=== PATIENT | female | born 1970 | race Caucasian/White ===

== ENCOUNTER → 2017-12-20 09:53 | Outpatient (REF) | payer BC, SELFPAY ==
--- NOTE | 2017-12-20 09:30 | PAPFT_PTH ---
PATIENT: Elma Pearce LOC: [facility] U#:[id number] AGE/SX: 54/F ROOM: RE12/20/[address]: RONI Hdez : 1970 BED: DIS: SPEC #: [id number] RECD: 12/20/17 12:45 STATUS: DAVID REEdwin #: [id number] NA: 12/20/17 09:[address]: Bess Angel DEPT: [facility] Cytology RECD BY: Cathy Ryan ENTERED: 12/20/17 12:45 SP TYPE: PAPFT OTHR DR: None Tissues: 1 - CX/ENDOCX FOR PAP SMEARS Procedures: PAP THIN PREP/UVM Screening HPV DNA PROBE Comments: [id number]
== END ==
LOC: LBN 09:53
PROVIDERS: Visit Provider Nurse Practitioner Family
DX: Z12.4 Encounter for screening for malignant neoplasm of cervix (principal); Z11.51 Encounter for screening for human papillomavirus (HPV)
CPT/HCPCS: 88142; 87624

== ENCOUNTER → 2017-12-26 00:28 | Outpatient (CLI) | payer BC, SELFPAY ==
--- NOTE | 2017-12-26 07:33 | DI.REPORT_ITS ---
SYMPTOM/DIAGNOSIS: SCREENING Z12.31 MAMMOGRAM: Mammograms were interpreted according to the usual protocol including computer analysis with CAD system, tomosynthesis and C view imaging. The breasts are heterogeneously dense. No dominant mass or clumped microcalcification is identified in either breast. The current examination is compared with previous examination of 2013 and there has been no gross interval change in appearance in comparison with the previous study. CONCLUSION: No specific evidence of malignancy at this time. Routine screening examinations are suggested at yearly intervals in this age group according to the ACS/ACR guidelines. Category 1, breast density category C. MQSA ASSESSMENT OF FINDINGS: Negative. Category 1. Patient will receive a letter notifying them of these results. Bi-RADS category C. The breasts are heterogeneously dense, which may obscure small masses.
== END ==
PROVIDERS: Visit Provider Nurse Practitioner Family
DX: Z12.31 Encounter for screening mammogram for malignant neoplasm of breast (principal)
CPT/HCPCS: 77063; 77067

== ENCOUNTER → 2018-01-08 03:36 | Outpatient (CLI) | payer BC, SELFPAY ==
[2018-01-08 08:09] LABS: Absolute Basophil Count 0.02 k/cumm (0.0-0.2); Absolute Eosinophil Count 0.07 k/cumm (0.0-0.7); Absolute Lymphocyte Count 1.52 k/cumm (1.2-3.4); Absolute Monocyte Count 0.37 k/cumm (0.11-0.7); Absolute Neutrophil Count 1.64 k/cumm (1.2-6.7); Basophils % 0.6; Eosinophils % 1.9; HCT 31.5 % (36.0-46.0); HGB 9.9 g/dL (12.0-15.5); Mean Corp. HGB Concentration 31.4 g/dL (32.0-36.0); Mean Corpuscular Volume 79.5 fL (80-95); Mean Platelet Volume 11.3 fL (8.0-11.0); Monocytes % 10.2; Neutrophils % 45.3; Platelet Count 247 x1000/uL (130-400); RBC 3.96 m/cumm (4.00-5.20); RBC Distribution Width 16.3 % (11.7-14.6); White Blood Cell Count 3.62 k/cumm (4.4-10.8)
[2018-01-08 08:58] LABS: Anisocytosis 2+; Diff Comment RBC Morph Reviewed
[2018-01-08 08:59] LABS: Basophilic Stippling Present; Hypochromasia 1+; Microcytosis 1+; Polychromasia Present
[2018-01-08 09:03] LABS: Poikilocytes 1+
[2018-01-08 09:11] LABS: ALT 16 U/L (12-78); AST 11 U/L (15-37); Albumin 3.6 g/dL (3.4-5.0); Alkaline Phosphatase 60 U/L (46-116); BUN 14 mg/dL (7-18); CREATININE 0.81 mg/dL (0.55-1.02); Calcium 8.3 mg/dL (8.5-10.1); Chloride 105 mmol/L (98-107); Cholesterol 162 mg/dL (50-200); Glucose 84 mg/dL (70-100); HDL Cholesterol 73 mg/dL (40-60); LDL CHOLESTEROL 83 mg/dL (<100); Sodium 138 mmol/L (136-145); TSH (W/Ref FT4) 3.39 uIU/mL (0.358-3.74); Total Protein 6.8 g/dL (6.4-8.2); Triglyceride 33 mg/dL (30-150)
[2018-01-08 09:24] LABS: Bilirubin, Total 0.6 mg/dL (0.2-1.0)
== END ==
PROVIDERS: Visit Provider Family Medicine
DX: Z00.00 Encounter for general adult medical examination without abnormal findings (principal); Z83.49 Family history of other endocrine, nutritional and metabolic diseases
CPT/HCPCS: 36415; 80053; 80061; 83721; 84443; 85025

== ENCOUNTER 2018-01-23 07:50 | Outpatient (CLI) | payer BC, SELFPAY ==
[2018-01-23 09:26] LABS: Iron 54 ug/dL (50-175)
[2018-01-23 09:59] LABS: Ferritin 5 ng/mL (8-388); Folate 13.5 ng/mL (8.6-20.0); Vitamin B12 374 pg/mL (193-986)
[2018-01-25 15:38] LABS: Hemoglobinopathy Interpretat Interpretation:
== END 2018-01-23 08:10 ==
PROVIDERS: PCP Family Medicine; Visit Provider Family Medicine
DX: D64.9 Anemia, unspecified (principal)
CPT/HCPCS: 36415; 82607; 82728; 82746; 83020; 83036; 83540; 84165

== ENCOUNTER 2019-01-23 10:50 | Outpatient (REF) | payer BC, SELFPAY ==
[2019-01-24 12:20] LABS: Chlamydia Result Negative; GC Result Negative; Specimen Description CERVIX
== END 2019-01-23 11:10 ==
LOC: LBN 10:50
PROVIDERS: PCP Family Medicine; Visit Provider Nurse Practitioner Family
DX: Z11.3 Encounter for screening for infections with a predominantly sexual mode of transmission (principal)
CPT/HCPCS: 87491; 87591

== ENCOUNTER 2019-01-27 00:42 | Outpatient (CLI) | payer BC, SELFPAY ==
--- NOTE | 2019-01-27 07:48 | DI.US_ITS ---
SYMPTOM/DIAGNOSIS: ABNORMAL VAGINAL BLEEDING, N93.9, CERVICAL POLYP PELVIC ULTRASOUND: A transabdominal and transvaginal examination was carried out. The uterus measures 10.1 cm. in length, 5.0 cm. in height and 6.7 cm. in width with an endometrial stripe thickness of 6.3 mm. There is an anterior fundal, 3.1 by 2.2 by 2.5 cm. fibroid and a posterior fundal fibroid measures 1.4 by 0.9 by 1.1 cm. The right ovary measures 2.5 by 1.4 by 1.5 cm. and follicular cysts are identified. The left ovary measures 2.7 by 1.6 by 1.4 cm. and contains a 1.0 by 0.9 by 1.1 cm. cyst. The kidneys are unremarkable. SUMMARY: Fibroids are identified in an acoustically heterogeneous uterus. The study is otherwise unremarkable.
== END 2019-01-27 01:02 ==
PROVIDERS: PCP Family Medicine; Visit Provider Nurse Practitioner Family
DX: N93.8 Other specified abnormal uterine and vaginal bleeding (principal); D25.9 Leiomyoma of uterus, unspecified; N83.01 Follicular cyst of right ovary; N83.292 Other ovarian cyst, left side; N84.1 Polyp of cervix uteri
CPT/HCPCS: 76830; 76856

== ENCOUNTER 2019-01-28 14:56 | Outpatient (REF) | payer BC, SELFPAY ==
--- NOTE | 2019-01-28 14:00 | CER_PTH ---
PATIENT: Elma Pearce LOC: [facility] U#:[id number] AGE/SX: 48/F ROOM: RE01/28/[address]: Brian Negron MD : 1970 BED: DIS: 01/28/2019 SPEC #: [id number] RECD: 01/28/19 15:28 STATUS: DAVID REQ #: [id number] NA: 01/28/19 14:[address]: Brian Negron DEPT: Surgical Specimen RECD BY: Cathy Ryan ENTERED: 01/28/19 15:29 SP TYPE: CER OTHR DR: Janelle Astudillo Tissues: 1 - CERVICAL BIOPSY 2 - ENDOMETRIUM BX/CURRETTE Procedures: GROSS AND MICRO LEVEL 4 Comments: [id number]
== END 2019-01-28 15:16 ==
LOC: LBN 14:56
PROVIDERS: PCP Family Medicine; Visit Provider Obstetrics & Gynecology
DX: N84.1 Polyp of cervix uteri (principal); N83.8 Other noninflammatory disorders of ovary, fallopian tube and broad ligament; N85.01 Benign endometrial hyperplasia; N93.8 Other specified abnormal uterine and vaginal bleeding
CPT/HCPCS: 88305

== ENCOUNTER 2019-02-04 16:59 | Outpatient (REF) | payer BC, SELFPAY | END 2019-02-04 17:19 | LOC: LBN 16:59 | PROVIDERS: PCP Family Medicine; Visit Provider Obstetrics & Gynecology | DX: R30.0 Dysuria (principal) | CPT/HCPCS: 87077; 87086; 87186 ==

== ENCOUNTER 2020-08-02 02:26 | Outpatient (CLI) | payer BC, SELFPAY ==
--- NOTE | 2020-08-02 07:00 | DI.MAMMO_ITS ---
EXAM: MG MAMMO SCREENING CLINICAL HISTORY: screening,Z12.39. TECHNIQUE: Bilateral full field digital CC and MLO mammographic images were obtained with 3D tomosyn thesis and utilizing computer aided detection (CAD). COMPARISON: Prior mammograms dating back to 2013, the most recent being December 2017. Prior ultrasound 2013 was reviewed FINDINGS: Fibroglandular tissue is again noted be moderately dense, this decreasing the sensitivity mammogram f or finding hidden underlying lesions. There are no new obvious spiculated masses nor malignant appearing microcalcification groups. There is no significant architectural distortion nor skin thickening-retraction. IMPRESSION: Dense bilateral fibroglandular tissue. No obvious radiographic evidence of malignancy. BI-RADS Category 1 - Negative Breast Density - Category C - Heterogeneously dense Breast density Category C or D implies that the patient has dense breast tissue. Dense breast tissue can make it harder to find cancer on a mammogram. Dense breast tissue is also associated with an incr eased risk of breast cancer. This information about the result of the mammogram report was provided to the patient to raise their awareness. Use this report when you speak with the patient about their risks for breast cancer, which includes their family history. At that time, you may recommend additional screening tests (Ultrasoun d or MRI) as these tests may add significant information. A negative radiographic report should not delay biopsy if a dominant or clinically suspicious mass is present. Up to ten percent of cancers are not identified on mammography. A negative report may reinforce clinical impression. Adenosis and dense breasts may obscure an underlying neoplasm. False positive reports average 6 to 10%. Patient will receive a letter notifying them of these results.
== END 2020-08-02 02:46 ==
PROVIDERS: PCP Family Medicine; Visit Provider Nurse Practitioner Family
DX: Z12.31 Encounter for screening mammogram for malignant neoplasm of breast (principal)
CPT/HCPCS: 77063; 77067

== ENCOUNTER 2020-08-02 13:53 | Outpatient (REF) | payer BC, SELFPAY ==
--- NOTE | 2020-08-02 13:00 | PAPFT_PTH ---
PATIENT: Elma Pearce LOC: [facility] U#:[id number] AGE/SX: 49/F ROOM: RE08/02/[address]: RONI Hdez : 1970 BED: DIS: 08/02/2020 SPEC #: [id number] RECD: 08/02/20 17:30 STATUS: DAVID REEdwin #: [id number] NA: 08/02/20 13:[address]: Bess Angel DEPT: [facility] Cytology RECD BY: Cathy Ryan ENTERED: 08/02/20 17:30 SP TYPE: PAPFT OTHR DR: Janelle Astudillo Tissues: 1 - CX/ENDOCX FOR PAP SMEARS Procedures: PAP THIN PREP/UVM Screening HPV DNA PROBE Comments: [id number]
[2020-08-09 14:55] LABS: Chlamydia Result Negative (Negative); GC Result Negative (Negative)
== END 2020-08-02 13:54 | disposition home or self-care (01) ==
LOC: LBN 13:53
PROVIDERS: PCP Family Medicine; Visit Provider Nurse Practitioner Family
DX: Z11.3 Encounter for screening for infections with a predominantly sexual mode of transmission (principal); Z12.4 Encounter for screening for malignant neoplasm of cervix; Z11.51 Encounter for screening for human papillomavirus (HPV)
CPT/HCPCS: 87491; 87591; 88142; 87624

== ENCOUNTER 2020-08-31 10:22 | Outpatient (REF) | payer BC, SELFPAY ==
--- NOTE | 2020-08-31 09:40 | CER_PTH ---
PATIENT: Elma Pearce LOC: [facility] U#:[id number] AGE/SX: 49/F ROOM: RE08/31/[address]: Mary Wills DO : 1970 BED: DIS: 08/31/2020 SPEC #: [id number] RECD: 08/31/20 17:28 STATUS: DAVID REQ #: [id number] NA: 08/31/20 09:[address]: Mary Wills DEPT: Surgical Specimen RECD BY: Cathy Ryan ENTERED: 08/31/20 17:28 SP TYPE: CER TIAGO DR: Janelle Astudillo Tissues: 1 - CERVICAL BIOPSY Procedures: GROSS AND MICRO LEVEL 4 Comments: [id number]
== END 2020-08-31 10:23 | disposition home or self-care (01) ==
LOC: LBN 10:22
PROVIDERS: PCP Family Medicine; Visit Provider Obstetrics & Gynecology
DX: N84.1 Polyp of cervix uteri (principal); N88.8 Other specified noninflammatory disorders of cervix uteri
CPT/HCPCS: 88305

== ENCOUNTER 2020-10-15 02:46 | Outpatient (CLI) | payer BC, SELFPAY ==
[2020-10-15 16:59] LABS: FSH 32.4 mIU/mL (See Note)
== END 2020-10-15 02:47 | disposition home or self-care (01) ==
LOC: LBO 02:46
PROVIDERS: PCP Family Medicine; Visit Provider Obstetrics & Gynecology
DX: N93.8 Other specified abnormal uterine and vaginal bleeding (principal)
CPT/HCPCS: 36415; 83001

== ENCOUNTER 2020-12-14 22:18 | Outpatient (REF) | payer BC, SELFPAY | END 2020-12-14 22:19 | disposition home or self-care (01) | LOC: LBN 22:18 | PROVIDERS: PCP Family Medicine; Visit Provider Nurse Practitioner Family | DX: R30.0 Dysuria (principal) | CPT/HCPCS: 87077; 87086; 87186 ==

== ENCOUNTER 2021-04-26 18:45 | Outpatient (REF) | payer BC, SELFPAY | END 2021-04-26 18:46 | disposition home or self-care (01) | LOC: LBN 18:45 | PROVIDERS: PCP Family Medicine; Visit Provider Obstetrics & Gynecology Gynecology | DX: R30.0 Dysuria (principal) | CPT/HCPCS: 87077; 87086; 87186 ==

== ENCOUNTER 2021-10-31 02:54 | Outpatient (CLI) | payer BC, SELFPAY ==
[2021-10-31 16:43] LABS: Abs Immature Grans 0.01 10^3/uL (0.0-0.06); Absolute Basophil Count 0.02 10^3/uL (0.0-0.2); Absolute Eosinophil Count 0.01 10^3/uL (0.0-0.7); Absolute Lymphocyte Count 1.66 10^3/uL (1.2-3.4); Absolute Monocyte Count 0.45 10^3/uL (0.1-0.8); Absolute Neutrophil Count 2.22 10^3/uL (1.2-6.7); Basophils % 0.5; Eosinophils % 0.2; HCT 39.4 % (36.0-46.0); Immature Grans % 0.2; MCH 31.3 pg (27.0-33.0); MCV 95 fL (80-95); MPV 11.1 fL (8.0-11.0); Monocytes % 10.3; Neutrophils % 50.8; Platelet Count 196 10^3/uL (130-400); RBC 4.15 10^6/uL (3.93-5.22); RDW 11.6 % (11.7-14.6); RDW-SD 40.6 fL; WBC 4.37 10^3/uL (4.4-10.8)
[2021-10-31 17:25] LABS: TSH (W/Ref FT4) 2.78 uIU/mL (0.36-3.74)
== END 2021-10-31 02:55 | disposition home or self-care (01) ==
LOC: LBO 02:54
PROVIDERS: PCP Family Medicine; Visit Provider Obstetrics & Gynecology
DX: D25.9 Leiomyoma of uterus, unspecified (principal); N95.0 Postmenopausal bleeding
CPT/HCPCS: 36415; 84443; 85025

== ENCOUNTER → 2021-11-29 00:19 | Outpatient (CLI) | payer BC, SELFPAY ==
--- NOTE | 2021-11-29 07:30 | DI.MAMMO_ITS ---
Exam(s) MAMMO SCREENING EXAM: MAMMO SCREENING CLINICAL HISTORY: screening. TECHNIQUE: Bilateral full field digital CC and MLO mammographic images were obtained with 3D tomosyn thesis and utilizing computer aided detection (CAD). COMPARISON: Prior mammograms were reviewed, the most recent being July 2020. FINDINGS: Been no significant change in the appearance and distribution of the fibroglandular tissue. There are no new spiculated masses nor malignant appearing microcalcification groups. There is no significant architectural distortion nor skin thickening-retraction. IMPRESSION: No radiographic evidence of malignancy. BI-RADS Category 1 - Negative Breast Density - Category C - Heterogeneously dense Breast density Category C or D implies that the patient has dense breast tissue. Dense breast tissue can make it harder to find cancer on a mammogram. Dense breast tissue is also associated with an incr eased risk of breast cancer. This information about the result of the mammogram report was provided to the patient to raise their awareness. Use this report when you speak with the patient about their risks for breast cancer, which includes their family history. At that time, you may recommend additional screening tests (Ultrasoun d or MRI) as these tests may add significant information. A negative radiographic report should not delay biopsy if a dominant or clinically suspicious mass is present. Up to ten percent of cancers are not identified on mammography. A negative report may reinforce clinical impression. Adenosis and dense breasts may obscure an underlying neoplasm. False positive reports average 6 to 10%. Patient will receive a letter notifying them of these results.
== END ==
PROVIDERS: PCP Family Medicine; Visit Provider Obstetrics & Gynecology
DX: Z12.31 Encounter for screening mammogram for malignant neoplasm of breast (principal)
CPT/HCPCS: 77063; 77067

== ENCOUNTER 2021-12-13 12:48 | Outpatient (REF) | payer BC, SELFPAY ==
--- NOTE | 2021-12-13 11:00 | ENDOMET_PTH ---
PATIENT: Elma Pearce LOC: [facility] U#:[id number] AGE/SX: 51/F ROOM: RE12/13/[address]: Mary Wills DO : 1970 BED: DIS: 12/13/2021 SPEC #: [id number] RECD: 12/13/21 12:55 STATUS: DAVID REQ #: [id number] NA: 12/13/21 11:[address]: Mary Wills DEPT: Surgical Specimen RECD BY: Cathy Ryan ENTERED: 12/13/21 12:55 SP TYPE: Endomet OTHR DR: Janelle Astudillo Tissues: 1 - ENDOMETRIUM BX/CRISPIN Procedures: GROSS AND MICRO LEVEL 4 Comments: [id number]
== END 2021-12-13 12:49 | disposition home or self-care (01) ==
LOC: LBN 12:48
PROVIDERS: PCP Family Medicine; Visit Provider Obstetrics & Gynecology
DX: N93.8 Other specified abnormal uterine and vaginal bleeding (principal)
CPT/HCPCS: 88305

== ENCOUNTER → 2023-03-05 02:24 | Outpatient (CLI) | payer BC, SELFPAY ==
--- NOTE | 2023-03-05 06:45 | DI.US_ITS ---
Exam(s) US PELVIS TRANSVAGINAL EXAM: US PELVIS TRANSVAGINAL CLINICAL HISTORY: re-check fibroids,abnl uterine bleeding,d25.9,n93.9 TECHNIQUE: Ultrasound of the pelvis was performed both transabdominal and transvaginal. COMPARISON: US US PELVIS TRANSVAGINAL from 11/27/2022 FINDINGS: UTERUS: Nongravid and anteverted, Measures 11.2 cm length x 7.8 cm AP x 0.6 cm wide. Anterior posterior uterine fibroids are again noted. The anterior fibroid present measures approxima tely 4.8 x 3.8 x 4.0 cm. Slightly larger than previous. The posterior fibroid presently measures 5.3 x 4.1 x 4.5 cm.Also slightly larger than previous measur ements. Endometrial thickness measures 11 mm. There is no fluid in the endometrial canal. CERVIX: There are no obvious nabothian cysts. RIGHT OVARY: Measures 3.3 x 2.4 x 2.0 cm No significant cysts nor masses evident in the right ovary. LEFT OVARY: Measures 2.7 x 1.5 x 1.5 cm No significant cysts nor masses evident in the left ovary. CUL-DE-SAC: No free fluid evident. IMPRESSION: 1. Two fibroids again noted located anteriorly and posteriorly with measurements as above. Both bayron urements are slightly larger than prior measurements obtained on the prior ultrasound examination of November 27, 2022. 2. No abnormal ovarian findings. 3. No free fluid evident in the adnexal regions and cul-de-sac. DATA REPOSITORY:
--- NOTE | 2023-03-05 06:45 | DI.MAMMO_ITS ---
Exam(s) MAMMO SCREENING EXAM: MAMMO SCREENING CLINICAL HISTORY: screening,z12.39. TECHNIQUE: Bilateral full field digital CC and MLO mammographic images were obtained with 3D tomosyn thesis and utilizing computer aided detection (CAD). COMPARISON: Prior mammograms were reviewed. FINDINGS: No new significant radiograph findings in the right breast. Left breast on the MLO 3D view there is an asymmetric density-possible nodule measuring 1.3 x 0 point 6 cm, located approximately 6 cm in from the nipple. Spot compression view and ultrasound recommend ed. There are no malignant-appearing microcalcification groups in this region nor elsewhere in either jody ast. There is no significant architectural distortion nor skin thickening-retraction. IMPRESSION: 1. No radiographic evidence of malignancy in the right breast. 2. Asymmetric density-possible nodule left breast. Spot compression MLO view and ultrasound recommen ded. BI-RADS Category 0 - Assessment Incomplete: Need additional imaging evaluation Breast Density - Category C - Heterogeneously dense Breast density Category C or D implies that the patient has dense breast tissue. Dense breast tissue can make it harder to find cancer on a mammogram. Dense breast tissue is also associated with an incr eased risk of breast cancer. This information about the result of the mammogram report was provided to the patient to raise their awareness. Use this report when you speak with the patient about their risks for breast cancer, which includes their family history. At that time, you may recommend additional screening tests (Ultrasoun d or MRI) as these tests may add significant information. A negative radiographic report should not delay biopsy if a dominant or clinically suspicious mass is present. Up to ten percent of cancers are not identified on mammography. A negative report may reinforce clinical impression. Adenosis and dense breasts may obscure an underlying neoplasm. False positive reports average 6 to 10%. Patient will receive a letter notifying them of these results.
== END ==
PROVIDERS: PCP Family Medicine; Visit Provider Obstetrics & Gynecology
DX: Z12.31 Encounter for screening mammogram for malignant neoplasm of breast (principal); D25.9 Leiomyoma of uterus, unspecified; N93.9 Abnormal uterine and vaginal bleeding, unspecified
CPT/HCPCS: 77063; 77067; 76830; 76856

== ENCOUNTER → 2023-03-08 02:44 | Outpatient (CLI) | payer BC, SELFPAY ==
--- NOTE | 2023-03-08 09:54 | DI.MAMMO_ITS ---
Exam(s) MAMMO SCREEN CALL BACK UNI EXAM: MAMMO SCREEN CALL BACK UNI CLINICAL HISTORY: F/U MAMMO, R92.9, ASYMMETRIC DENSITY,? NODULE TECHNIQUE: Spot compression views with tomographic imaging were performed. COMPARISON: 2013 through 05 March 2023 FINDINGS: No suspicious masses or suspicious microcalcifications are seen. No persistent abnormality is seen on the additional views performed. The findings are consistent wit h overlying fibroglandular tissue. There has been no significant change from prior exams. IMPRESSION: BI-RADS Category 1, Negative Yearly screening mammography is recommended. Breast Density - Category B, scattered fibroglandular densities.
== END ==
PROVIDERS: PCP Family Medicine; Visit Provider Obstetrics & Gynecology
DX: Z12.31 Encounter for screening mammogram for malignant neoplasm of breast (principal); R92.8 Other abnormal and inconclusive findings on diagnostic imaging of breast
CPT/HCPCS: 77063; 77067